=== PATIENT | male | born 1975 | race Caucasian/White ===

== ENCOUNTER 2018-03-01 19:18 | Observation (INO) | payer OTHER, SELFPAY ==
[2018-03-01] VITALS (10 sets, daily range): BP systolic 109–171; BP diastolic 76–125; PULSE 83–117; RESP 19–28; TEMP 37; O2SAT 96–100; BMI 26.4
--- NOTE | 2018-03-01 19:28 | DI.RAD.S_ITS ---
PROCEDURE: XR CHEST 1V INDICATIONS: chest pain TECHNIQUE: One view of the chest was acquired. COMPARISON: None. FINDINGS: Surgical changes and devices: None. Lungs and pleura: No pleural effusions or pneumothorax. Lungs are clear. Elevated left hemidiaphragm versus large hernia noted. Mediastinum: Mediastinal contours appear normal. Heart size is normal. Bones and chest wall: No suspicious bony lesions. Overlying soft tissues appear unremarkable. IMPRESSION: Elevated left hemidiaphragm versus large hernia. Dictated by: Donna Keys MD, PhD on 03/01/2018 at 20:11 Approved by: Donna Keys MD, PhD on 03/01/2018 at 20:12
[2018-03-01] MEDS: ASPIRIN 81 MG TAB 324 MG PO (19:34)
[2018-03-01] MEDS: NITROGLYCERIN 0.4 MG SL TAB SL ×3 (19:34→19:49)
[2018-03-01 19:36] LABS: Add Manual Diff / Slide Review NO; Basophils Percent Auto 0.7 % (0-2); Hematocrit 49.6 % (41-53); Hemoglobin 16.8 g/dL (13.5-17.5); Mean Corpuscular HGB Conc 33.9 % (30-36); Mean Corpuscular Hemoglobin 32.2 PG (26-34); Mean Corpuscular Volume 95.1 fL (80-100); Monocytes Percent Auto 6.5 % (3-14); Neutrophils Absolute Auto 7600 /uL (3000-5900); Neutrophils Percent Auto 75.8 % (50-75); Platelet Count 350 X10^3/uL (150-400); Red Blood Cell Count 5.22 X10^6/uL (4.5-5.9); Red Cell Distribution Width 12.2 % (11.6-14.8)
[2018-03-01 19:47] LABS: Alanine Aminotransferase 33 IU/L (21-72); Albumin Globulin Ratio 1.6 (1.0-2.8); Alkaline Phosphatase 110 U/L (38-126); Aspartate Aminotransferase 27 IU/L (17-59); Bilirubin Total 0.6 mg/dL (0.2-1.3); Blood Urea Nitrogen 17 mg/dL (9-20); Calcium 9.8 mg/dL (8.4-10.2); Carbon Dioxide 25 mmol/L (22-32); Chloride 102 mmol/L (98-107); Estimated Glomerular Filt Rate > 60.0 mL/min (>60); Globulin 3.1 g/dL (1.7-4.1); Glucose 111 mg/dL (70-100); HEMOLYSIS 29 (0-50); Lipase 16 U/L (23-300); Potassium 4.1 mmol/L (3.4-5.1); Sodium 139 mmol/L (137-145); Total Protein 8.1 g/dL (6.3-8.2)
[2018-03-01] MEDS: fentaNYL 100 MCG/2 ML INJ IV (19:47)
[2018-03-01 19:48] LABS: D Dimer < 200 ng/mL (<230)
[2018-03-01 19:59] LABS: Troponin I < 0.012 ng/mL (0.01-0.034)
--- NOTE | 2018-03-01 20:12 | DI.CT.S_ITS ---
PROCEDURE: CT ANGIO CHEST INDICATIONS: dissection? chest pain w/ tachycardia and non-specific ECG TECHNIQUE: Precontrast 5 mm thick sections acquired from the lung apices through the diaphragms. After the administration of intravenous contrast, 2.5 mm thick sections again acquired from the lung apices through the diaphragms. 10 mm maximum intensity projection (MIP) oblique sagittal and coronal reformats were then acquired. For radiation dose reduction, the following was used: automated exposure control. COMPARISON: None. FINDINGS: Image quality: Excellent. AORTA: Intramural hematoma: Absent Maximum hematoma thickness: Not applicable. Focal contrast enhancement: Intramural blood pool (< 2 mm neck or imperceptible communication with aortic lumen): Absent. Ulcer-like projection (broad communication with aortic lumen > 3 mm): Absent. Dissection: Absent Marlon classification: Not applicable. Maximum aortic diameter: Report 6 cm. [If Cam[place] A dissection, > 5.0 cm has a poorer prognosis. If Marlon B dissection, > 4.0 cm has a poorer prognosis.] Periaortic hematoma: Absent. CHEST: Lungs and pleura: No acute airspace opacities. No pleural effusions or pneumothorax. Central and peripheral airways are patent and normal in caliber. Left hemidiaphragm is elevated. Mediastinum: Heart size is normal. No pericardial effusion. No mediastinal or hilar adenopathy by size criteria. Central pulmonary arteries are normal in size. Esophagus is normal in caliber. No hiatal hernias. Bones and chest wall: No axillary adenopathy by size criteria. Thyroid gland is within normal limits. No suspicious bony lesions. No vertebral body compression fractures. ABDOMEN: Solid organs: Liver is normal in size and enhancement where visualized. Gallbladder is within normal limits. Biliary system is non dilated. Pancreas enhances normally. Spleen is normal in size and enhancement. No adrenal nodules. Visualized kidneys are normal in size and enhancement, without hydronephrosis. Peritoneum and bowel: No free fluid or air. Visualized bowel loops are normal in caliber and wall thickness. Nodes and vessels: Visualized retroperitoneal or mesenteric lymph nodes are normal by size criteria. Bones: No suspicious bony lesions. No vertebral body compression fractures. Spine degenerative disease and facet arthropathy noted. IMPRESSION: 1. No aortic aneurysm or aortic dissection. 2. Elevated left hemidiaphragm of uncertain etiology. 3. No lung consolidation. Dictated by: Donna Keys MD, PhD on 03/01/2018 at 21:02 Approved by: Donna Keys MD, PhD on 03/01/2018 at 21:11
[2018-03-01] MEDS: LORazepam 2 MG/ML SYRINGE 1 MG IV (20:46)
[2018-03-01] MEDS: SODIUM CHLORIDE 0.9% 1,000 ML 1000 ML IV (20:46)
[2018-03-01 22:15] LABS: Troponin I < 0.012 ng/mL (0.01-0.034)
--- NOTE | 2018-03-02 | DI.NM.S_ITS ---
PROCEDURE: NM PAOLA PERF SPECT REST & STR Rest and exercise myocardial perfusion SPECT with gated imaging and ejection fraction RADIOPHARMACEUTICAL: 27.3 mCi Tc-99m sestamibi IV at rest and 20.6 mCi Tc-99m sestamibi IV at peak exercise. A two day-protocol was performed. INDICATIONS: chest pain TECHNIQUE: Radiopharmaceutical was injected at peak stress test, and also at rest. SPECT images were obtained. SPECT myocardial perfusion images were displayed in short axis, horizontal long axis, and vertical long axis views. Gated images were reviewed using Adayana software. COMPARISON: None. CARDIAC STRESS: A standard Claus treadmill exercise tolerance test was performed by the patient under the supervision of an attending staff. The patient exercised for 9 minutes and 32 seconds reaching 10.1 METs; functional aerobic impairment (NAPOLEON) is +15%. Hemodynamic data: There is normal blood pressure and heart rate response to exercise stress. Patient achieved 89% of maximum predicted heart rate at peak exercise. Symptoms: Patient had non-diagnostic 7/10 chest pain at rest that became 8/10 during exercise. EKG: No diagnostic EKG changes of ischemia; no ectopy. FINDINGS: Raw data: There is good myocardial labeling by radiotracer. No significant motion artifacts. Left ventricle function: Gated images demonstrate normal left ventricle wall thickening. No segmental wall motion abnormality. No transient ischemic dilation. The left ventricle resting end-diastolic volume is 112 mL. Left ventricle stress ejection fraction is 69%; normal values are above 45%. Myocardial perfusion: There is a small mid to distal anterior wall mild to moderate perfusion defect at rest that mostly resolved with prone imaging, suggesting artifact than true ischemia or infarction. IMPRESSION: Low risk, likely normal treadmill nuclear stress test. 1) No perfusion evidence of ischemia or infarction. There is a small mid to distal anterior wall mild to moderate perfusion defect at rest that mostly resolved with prone imaging, suggesting artifact than true ischemia or infarction. 2) Normal left ventricular size, wall motion, and systolic function (post stress EF 69%). 3) No ECG evidence of ischemia or infarction. Non-diagnostic chest pain during the study. Patient had non-diagnostic 7/10 chest pain at rest that became 8/10 during exercise. 4) Mildly reduced exercise tolerance (10.1 METs, NAPOLEON +15%). Target heart rate achieved. Appropriate blood pressure response to exercise. 5) No prior nuclear stress test available for comparison. Dictated by: Tricia Licona MD on 03/03/2018 at 13:18 Approved by: Tricia Licona MD on 03/03/2018 at 13:25
--- NOTE | 2018-03-02 00:22 | ED_ITS ---
HPI - Chest Pain General Chief Complaint: Chest Pain Stated Complaint: HEART PROBLEMS Time Seen by Provider: 03/01/18 19:28 History of Present Illness HPI narrative: HPI 42-year-old male presents for evaluation of one hour crushing substernal chest pain that is radiating to his left arm and is without clear provoking or relieving factors. Patient reports he has a history of arrhythmia with one episode that occurred 10 years ago with similar symptoms. Patient has taken losartan since. Patient is unable to further characterize his medical history, notes his mother had a history of congenital heart disease with to enlarge valves and her heart exploded in her mid 50s leading to her . Patient denies recent immobilization, leg trauma, estrogen use, surgery in the last four weeks, hemoptysis, or malignancy in the last 6 months. M/S/F/SocHx notable for: please see HPI; remainder reviewed with patient and in chart. ROS: Negative constitutional, eye, cardiovascular, pulmonary, GI, , MSK, skin , neurologic, psychiatric, endocrine unless noted in the HPI. Exam Gen: pleasant, uncomfortable appearing, mildly diaphoretic. HEENT: NC, AT, PEERL, EOMI. Resp: Clear to auscultation bilaterally, normal work of breathing. Card: RRR with no M/R/G, no crackles in lung bases, no pedal edema, no JVD appreciated. GI: NT/ND MSK: No chest wall TTP. No visible deformities, strength and tone WNL. Skin: Normal color with no visible lesions. Neuro: AO x 3, no facial asymmetry, vision and hearing WNL. Psych: mildly anxious, mood and affect otherwise appropriate. Labs / Imaging (pertinent): WBC 10.0, Hb 16.8, Na 139, K 4.1, lipase 60. Troponin (7:30 PM) <0.012, troponin (9:30 PM) <0.012 d-dimer < 200 EKG: SR at 99 bpm, nonspecific ST segment depressions, 1.5 mm J-point elevation in leads V1, nonspecific ST changes in the remaining leads. EKG, right sided: SR 117 bpm, right-sided leads without ST segment elevations or depressions, remainder of ECG unchanged. EKG (repeat): SR 84 bpm, resolution of nonspecific ECG changes, mild decrease in lead V1 J-point and slight change in morphology, no ST segment depressions or elevations. CXR: No acute cardiopulmonary disease process. Elevated left hemidiaphragm versus large hernia. CTA Chest: 1. No aortic aneurysm or aortic dissection. 2. Elevated left hemidiaphragm of uncertain etiology. 3. No lung consolidation. MDM Previous chart, nursing note, and vitals reviewed. A: 42-year-old male presents for evaluation of one hour crushing substernal chest pain that is radiating to his left arm and is without clear provoking or relieving factors. DDx and Evaluation: * ACS - doubt ACS given a non-ischemic EKG and negative serial troponins. * UA - concern exists for unstable angina given the crushing substernal chest pain rating to an arm, nonspecific ECG changes, and resolution of ECG changes as well as symptoms with aspirin, rest, nitroglycerin. HEART score 5 (Hx - 1, EKG - 2, age - 1, risk factors - 1, troponin - 0; 30 day MACE: 12 to 16.6%). * Pericarditis - consider pericarditis unlikely given the lack of IN segment depressions as well as the absence of diffuse ST-segment elevations, lack of reduction of pain when supine, and lack of a friction rub. * Myocarditis - unlikely given the negative troponin and an EKG without characteristic IN-segment or ST-segment changes. * Dissection - negative CTA. * PE - Wells' (Signs & Sx of DVT - 0, PE is #1 or equally likelihood - 0, HR > 100 - 1.5, immobilization of >=3 days or surgery in last 28 days - 0, prior DVT or PE - 0, hemoptysis - 0, malignancy w/ tx in last 6 mo or palliative - 0) 1.5 ; as such the patient's negative d-dimer is appropriate for PE rule out/risk stratification. * Mediastinal Air - no evidence by imaging. * Pneumothorax - no evidence by imaging. * MSK - doubt given lack of reproducibility on exam. * Endocarditis - no identifiable risk factors, patient afebrile, no new murmurs appreciated on exam; doubt. * GI (Esophageal rupture, GERD) - esophageal rupture effectively excluded given the lack of mediastinal widening, non-toxic appearance, and lack of identifiable risk factors. While not definitively excluded, further evaluation of GERD is deferred to an outpatient setting. ED Course: Patient given ASA and prn SL nitroglycerin. Fentanyl required for additional pain control. Patient with mild change in symptoms with these intervention, Ativan given for further symptomatic treatment. Disposition: admitted for stress test in cardiac monitoring Impression: Chest Pain. Related Data Home Medications Medication Instructions Recorded Confirmed losartan 25 mg PO DAILY 03/01/18 03/01/18 Allergies Allergy/AdvReac Type Severity Reaction Status Date / Time benzonatate Allergy Verified 03/01/18 19:34 [From Ryan Morrow] Exam Initial Vital Signs Initial Vital Signs: Vital Signs Temperature 98.6 F 03/01/18 19:28 Pulse Rate 107 H 03/01/18 19:28 Respiratory Rate 20 03/01/18 19:28 Blood Pressure 171/125 H 03/01/18 19:28 Pulse Oximetry 100 03/01/18 19:28 Course Orders Ordered: ED Orders 03/01/18 19:28 XR chest 1V Stat EKG-12 Lead Stat 03/01/18 19:30 Complete Blood Count AUTO DIFF Stat Comprehensive Metabolic Panel Stat D Dimer Stat Lipase Stat Troponin I Stat 03/01/18 19:41 EKG-12 Lead Stat 03/01/18 20:12 CT chest wo/w con Stat 03/01/18 21:30 Troponin I Stat 03/02/18 00:12 Consult to Physician Routine Hydromorphone HCl (Dilaudid) 0.5 mg IV Q4HR PRN PRN Reason: Pain, Mild (1-3) Discontinued Medications Aspirin (Aspirin Chew) 324 mg PO NOW ONE Stop: 03/01/18 19:29 Last Admin: 03/01/18 19:34 Dose: 324 mg Fentanyl (Sublimaze) 100 mcg IV NOW ONE Stop: 03/01/18 19:43 Last Admin: 03/01/18 19:47 Dose: 100 mcg Sodium Chloride (Normal Saline 0.9%) 1,000 mls @ 1,000 mls/hr IV BOLUS ONE Stop: 03/01/18 21:42 Last Infusion: 03/01/18 21:59 Dose: 0 mls/hr Admin: 03/01/18 20:46 Dose: 1,000 mls/hr Lorazepam (Ativan) 1 mg IV NOW ONE Stop: 03/01/18 20:44 Last Admin: 03/01/18 20:46 Dose: 1 mg Nitroglycerin (Nitrostat) 0.4 mg SL [id number] PRN PRN Reason: Chest Pain Last Admin: 03/01/18 19:49 Dose: 0.4 mg Admin: 03/01/18 19:44 Dose: 0.4 mg Admin: 03/01/18 19:34 Dose: 0.4 mg Vital Signs - 8 hr 03/01/18 19:28 03/01/18 19:36 03/01/18 19:41 Temperature 98.6 F Pulse Rate 107 H 107 H 106 H Respiratory Rate 20 25 H Blood Pressure 171/125 H Blood Pressure [Right Arm] 163/125 H 163/125 H Pulse Oximetry 100 96 03/01/18 19:49 03/01/18 20:47 03/01/18 21:01 Temperature Pulse Rate 117 H 90 96 H Respiratory Rate 28 H 20 Blood Pressure Blood Pressure [Right Arm] 137/93 H 117/92 H 109/76 Pulse Oximetry 97 97 03/01/18 21:31 03/01/18 22:01 03/01/18 22:33 Temperature Pulse Rate 91 H 85 83 Respiratory Rate 23 19 21 Blood Pressure Blood Pressure [Right Arm] 125/90 H 114/85 H 114/86 H Pulse Oximetry 96 96 97 03/01/18 23:13 Temperature Pulse Rate 85 Respiratory Rate 19 Blood Pressure Blood Pressure [Right Arm] 159/89 H Pulse Oximetry 97 MDM - Chest Pain Lab Data Result diagrams: 03/01/18 19:30 03/01/18 19:30 Lab Results 03/01/18 03/01/18 03/01/18 Range/Units 19:30 19:30 19:30 WBC 10.0 (4.5-11.0) X10^3/uL RBC 5.22 (4.5-5.9) X10^6/uL Hgb 16.8 (13.5-17.5) g/dL Hct 49.6 (41-53) % MCV 95.1 (80-100) fL MCH 32.2 (26-34) PG MCHC 33.9 (30-36) % RDW 12.2 (11.6-14.8) % Plt Count 350 (150-400) X10^3/uL Neut % (Auto) 75.8 H (50-75) % Lymph % (Auto) 16.0 L (25-40) % [place] % (Auto) 6.5 (3-14) % Eos % (Auto) 1.0 L (2-4) % Baso % (Auto) 0.7 (0-2) % Neut # (Auto) 7600 H (7011-4823) /uL D-Dimer < 200 (<230) ng/mL Sodium 139 (137-145) mmol/L Potassium 4.1 (3.4-5.1) mmol/L Chloride 102 (98-107) mmol/L Carbon Dioxide 25 (22-32) mmol/L BUN 17 (9-20) mg/dL Creatinine 1.00 (0.66-1.25) mg/dL Estimated GFR > 60.0 (>60) mL/min BUN/Creatinine Ratio 17.0 (6-22) Glucose 111 H (70-100) mg/dL Calcium 9.8 (8.4-10.2) mg/dL Total Bilirubin 0.6 (0.2-1.3) mg/dL AST 27 (17-59) IU/L ALT 33 (21-72) IU/L Alkaline Phosphatase 110 (38-126) U/L Troponin I < 0.012 (0.01-0.034) ng/mL Total Protein 8.1 (6.3-8.2) g/dL Albumin 5.0 (3.5-5.0) g/dL Globulin 3.1 (1.7-4.1) g/dL Albumin/Globulin Ratio 1.6 (1.0-2.8) Lipase 16 L (23-300) U/L 03/01/18 Range/Units 21:30 WBC (4.5-11.0) X10^3/uL RBC (4.5-5.9) X10^6/uL Hgb (13.5-17.5) g/dL Hct (41-53) % MCV (80-100) fL MCH (26-34) PG MCHC (30-36) % RDW (11.6-14.8) % Plt Count (150-400) X10^3/uL Neut % (Auto) (50-75) % Lymph % (Auto) (25-40) % [place] % (Auto) (3-14) % Eos % (Auto) (2-4) % Baso % (Auto) (0-2) % Neut # (Auto) (7111-6574) /uL D-Dimer (<230) ng/mL Sodium (137-145) mmol/L Potassium (3.4-5.1) mmol/L Chloride (98-107) mmol/L Carbon Dioxide (22-32) mmol/L BUN (9-20) mg/dL Creatinine (0.66-1.25) mg/dL Estimated GFR (>60) mL/min BUN/Creatinine Ratio (6-22) Glucose (70-100) mg/dL Calcium (8.4-10.2) mg/dL Total Bilirubin (0.2-1.3) mg/dL AST (17-59) IU/L ALT (21-72) IU/L Alkaline Phosphatase (38-126) U/L Troponin I < 0.012 (0.01-0.034) ng/mL Total Protein (6.3-8.2) g/dL Albumin (3.5-5.0) g/dL Globulin (1.7-4.1) g/dL Albumin/Globulin Ratio (1.0-2.8) Lipase (23-300) U/L Discharge Plan Departure Patient Disposition: Admitted as Observation Clinical Impression: Chest pain
[2018-03-02 01:36] VITALS: BMI 26.4
--- NOTE | 2018-03-02 02:12 | PC.ADMIT ---
[address] Admission Note: The patient,VAZQUEZ PATHAK,42 y/o, was given written information regarding hospital policies, unit procedures and contact persons. Patient's smoking status: . Vital Signs - 8 hr 03/01/18 19:28 03/01/18 19:36 03/01/18 19:41 Temperature 98.6 F Pulse Rate 107 H 107 H 106 H Respiratory Rate 20 25 H Blood Pressure 171/125 H Blood Pressure [Right Arm] 163/125 H 163/125 H Pulse Oximetry 100 96 03/01/18 19:49 03/01/18 20:47 03/01/18 21:01 Temperature Pulse Rate 117 H 90 96 H Respiratory Rate 28 H 20 Blood Pressure Blood Pressure [Right Arm] 137/93 H 117/92 H 109/76 Pulse Oximetry 97 97 03/01/18 21:31 03/01/18 22:01 03/01/18 22:33 Temperature Pulse Rate 91 H 85 83 Respiratory Rate 23 19 21 Blood Pressure Blood Pressure [Right Arm] 125/90 H 114/85 H 114/86 H Pulse Oximetry 96 96 97 03/01/18 23:13 Temperature Pulse Rate 85 Respiratory Rate 19 Blood Pressure Blood Pressure [Right Arm] 159/89 H Pulse Oximetry 97
--- NOTE | 2018-03-02 02:13 | PC.NURSE ---
Alert/oriented. Arrived via stretcher, ambulated to bed. patient in no acute distress. Tele in place. Patient reports pain in chest/arm area 03/10 which it has been since getting pain meds in the ED. Patient appears relaxed and comfortable. Patient instructed home energy consultant light use. Nurse Garcia in ED reports patient NPO for stress test in AM. Patient reports passing out prior to coming to the ED and fell. Patient is a moderate risk for falls. Patient instructed to use call light prior to getting OOB and states understanding. Bed alarm placed and call light within reach.
--- NOTE | 2018-03-02 02:42 | PC.NURSE ---
Patient resting quietly with eyes closed and is snoring RR even and unlabored.
[2018-03-02 04:50] VITALS: BP 136/97; PULSE 82; RESP 13; TEMP 36.8; O2SAT 96
[2018-03-02] MEDS: HYDROMORPHONE 0.5 MG INJ IV ×2 (07:52→13:01)
[2018-03-02 08:06] VITALS: BP 145/89; PULSE 87; RESP 18; TEMP 36.6; O2SAT 97
--- NOTE | 2018-03-02 08:24 | PC.NURSE ---
Addendum entered by Theresa Zhao R.N. 03/02/18 13:09: PAIN - Dr. Johnson called to order a 30mg x1 dose toradol, when pt ret from scan, he states his pain had incr to about an 8 during the procedure, rates at 6 now, given the toradol, new order rec'd for gen diet, pt is alert, talking to family, no nausea or sob present, added 0.5mg iv dilaudid for continued discomfort, in for eval. Original Note: Addendum entered by Theresa Zhao R.N. 03/02/18 10:52: NUCL STRESS TEST - pt taken via wc for stress test, icu notifed for tele. Original Note: Addendum entered by Theresa Zhao R.N. 03/02/18 09:10: PAIN - earlier dilaudid did provide some relief, resting quietly bed, ekg completed. Original Note: AM NOTE - awake, checking cell phone, states slept briefly since arrival to floor, continues to have chest discomfort w/pain down r arm 6 on scale 0/10, describes as a dull, heavy weight, discomfort worse with movement and deep breathes,skin color pink, pain medications in er provided some brief relief, ra 96%, hr 80, +bt, denies nausea, npo status verified for anticipated nucl stress test this am, standby assist w/some initial slight dizziness, ambul into br and voided, ret to bed, advised to use call light for any oob assistance,given 0.5mg iv dilaudid for discomfort.
[2018-03-02 09:04] LABS: Cholesterol 191 mg/dL (140-199); HDL Cholesterol 38 mg/dL (40-60); LDL Cholesterol Calculated 128 mg/dL (<100); Triglycerides 123 mg/dL (35-150)
[2018-03-02 09:07] LABS: Troponin I < 0.012 ng/mL (0.01-0.034)
--- NOTE | 2018-03-02 09:49 | CM.URPRONOTE ---
CM UR Physician Consult Note Narrative: 42 yo male with atypical chest pain, normal troponin and non specific ST changes on ECG. Patient would be appropriate for observation status.
--- NOTE | 2018-03-02 10:00 | P.HP_ITS ---
History of Present Illness Date Patient Seen: 03/02/18 Time Patient Seen: 08:30 Chief complaint: HEART PROBLEMS Narrative: The patient states that after walking downstairs yesterday he experienced acute onset of severe, intense central chest pressure radiating into his right arm, worse with deep inspiration as a sharp discomfort behind his sternum. He states a family history of heart disease in his mother who in her 50s after history of congenital heart disease. The patient states a history of a arrhythmias, with chest discomfort over 10 years ago, but none since then. He is not sure of the details otherwise. He also has been told that a chest x-ray shows a chronically elevated left hemidiaphragm, noted when he was diagnosed with pneumonia a couple of years ago and treated as an outpatient. ER evaluation was unremarkable. He reports ongoing central chest discomfort. Serial cardiac enzymes have remained normal overnight. Patient History Family & Social History Family History: Reviewed 03/02/18 by Eladio Johnson MD Social History: household members spouse,children Safety & Behavioral: Feels Safe in Current Yes Environment Been Physically Hurt or No Threatened By a Person Suicidal Ideation Description None Suicide Plan Description No Plan Tobacco & Substance use: alcohol intake never Substance Use Type does not use Meds Home Medications Medication Instructions Recorded Confirmed Type losartan 25 mg PO DAILY 03/01/18 03/01/18 History Allergies Allergy/AdvReac Type Severity Reaction Status Date / Time benzonatate Allergy Verified 03/01/18 19:34 [From Ryan Morrow] Review of Systems Review of Systems All systems reviewed & are unremarkable except as noted in HPI and below Exam Vital Signs (past 8 hours): - 03/02/18 04:50 03/02/18 08:06 Temperature 98.2 F 98 F Pulse Rate 82 87 Respiratory Rate 13 18 Blood Pressure 136/97 H 145/89 H Pulse Oximetry 96 97 Oxygen Delivery Method Room Air Narrative Exam Narrative: General: Alert, pleasant healthy-appearing male in no apparent distress HEENT: Pupils equal round reactive, extraocular movements intact, mucous membranes pink and moist Neck: Supple Lungs: Clear to auscultation Cardiac: Regular rate and rhythm without appreciable murmur, rub or gallop Abdomen: Soft, nontender Extremities: Without edema Musculoskeletal: No joint tenderness, chest wall tenderness or deformity Neurologic: Alert, oriented, no focal motor sensory deficits evident Dermatologic: No rash or skin lesions Objective Labs Result Diagrams: 03/01/18 19:30 03/01/18 19:30 Labs: Laboratory Results - last 24 hr 03/01/18 03/01/18 03/01/18 19:30 19:30 19:30 WBC 10.0 RBC 5.22 Hgb 16.8 Hct 49.6 MCV 95.1 MCH 32.2 MCHC 33.9 RDW 12.2 Plt Count 350 Neut % (Auto) 75.8 H Lymph % (Auto) 16.0 L [place] % (Auto) 6.5 Eos % (Auto) 1.0 L Baso % (Auto) 0.7 Neut # (Auto) 7600 H D-Dimer < 200 Sodium 139 Potassium 4.1 Chloride 102 Carbon Dioxide 25 BUN 17 Creatinine 1.00 Estimated GFR > 60.0 BUN/Creatinine Ratio 17.0 Glucose 111 H Calcium 9.8 Total Bilirubin 0.6 AST 27 ALT 33 Alkaline Phosphatase 110 Troponin I < 0.012 Total Protein 8.1 Albumin 5.0 Globulin 3.1 Albumin/Globulin Ratio 1.6 Triglycerides Cholesterol LDL Cholesterol, Calc HDL Cholesterol Lipase 16 L 03/01/18 03/02/18 03/02/18 21:30 08:20 08:20 WBC RBC Hgb Hct MCV MCH MCHC RDW Plt Count Neut % (Auto) Lymph % (Auto) [place] % (Auto) Eos % (Auto) Baso % (Auto) Neut # (Auto) D-Dimer Sodium Potassium Chloride Carbon Dioxide BUN Creatinine Estimated GFR BUN/Creatinine Ratio Glucose Calcium Total Bilirubin AST ALT Alkaline Phosphatase Troponin I < 0.012 < 0.012 Total Protein Albumin Globulin Albumin/Globulin Ratio Triglycerides 123 Cholesterol 191 LDL Cholesterol, Calc 128 H HDL Cholesterol 38 L Lipase Assessment & Plan (1) Hypertension: Problem details: Continue routine medication. Current visit: Yes Status: Acute (2) Chest pain: Problem details: No evidence of myocardial infarction. Rule out underlying ischemic cardiomyopathy. Obtain nuclear medicine stress testing given significant family history and reported history of a arrhythmias and possible underlying cardiomyopathy. No evidence of pneumonia, aortic dissection or pulmonary embolism. If normal, patient will be discharged home with outpatient follow- up. Otherwise, Cardiology consultation will be obtained as indicated. Qualifiers: Chest pain type: Ischemic chest pain type: Current visit: Yes Status: Acute (3) Elevated hemidiaphragm: Problem details: Etiology of elevated left hemidiaphragm unclear, but chronic and not contributing to current presentation. Current visit: Yes Status: Acute Quality VTE Deep Vein Thrombosis/Pulmonary Embolism Present on Admission: No
[2018-03-02] MEDS: KETOROLAC 30 MG/ML VIAL IV ×2 (12:17→18:50)
[2018-03-02 13:00] VITALS: BP 141/103; PULSE 93; RESP 20; TEMP 36.8; O2SAT 96
[2018-03-02] MEDS: LOSARTAN 25 MG TABLET PO (14:10)
[2018-03-02 14:32] LABS: C-Reactive Protein Quant 0.7 mg/dL (<1.0)
[2018-03-02 14:34] LABS: Erythrocyte Sedimentation Rate 1 MM/HR (0-15)
[2018-03-02 14:42] LABS: Troponin I < 0.012 ng/mL (0.01-0.034)
[2018-03-02 15:03] LABS: Thyroid Stimulating Hormone 2.47 uIU/mL (0.47-4.68)
--- NOTE | 2018-03-02 15:21 | CM.DANOTE ---
DCP: assessment: case received, EMR reviewed and checked in this morning with pt. Introduced self and role. Pt is a 42 year old male who lives in [place] with his and children. Admitted to care of hospitalist team. Payer Yanique. P: home with outpt followup if all testing today proves this is doable, otherwise Dr. Johnson will be consulting cardiology. will follow prn.
[2018-03-02 16:15] VITALS: BP 166/80; PULSE 87; RESP 18; TEMP 36.8; O2SAT 97
[2018-03-02 18:37] VITALS: BP 154/117; PULSE 91; RESP 21; O2SAT 98
[2018-03-02] MEDS: HYDROMORPHONE 0.5 MG INJ 1 MG IV (18:50)
--- NOTE | 2018-03-02 19:42 | PC.NURSE ---
Addendum entered by Tamara Clayton R.N. 03/02/18 22:50: Patient reports pain relief and appears much less anxious after having Lorazepam. Visiting with 2 friends in room, laughing at times. Original Note: Patient called nurse in room, reporting heart feels like it's racing, said his neck heart beat had a pause. He is flushed in the face, reports sweating, BP 154/117. Rates chest pain 5/10, also said it never goes lower than a 5. I medicated him with scheduled Toradol and prn Dilaudid. 5 minutes later BP 147/105. Reports some relief from chest pain. I notified Dr Johnson of events. New order for Lorazepam 0.5 mg given. I talked to patient about this medication he said he would be willing to try it.
[2018-03-02] MEDS: LORazepam 0.5 MG TABLET PO (19:48)
[2018-03-02 20:07] VITALS: BP 147/127; PULSE 82; RESP 20; TEMP 36.7; O2SAT 96
[2018-03-03] MEDS: KETOROLAC 30 MG/ML VIAL IV ×3 (00:04→13:15)
[2018-03-03 00:10] VITALS: BP 122/77; PULSE 76; RESP 18; TEMP 36.7; O2SAT 97
[2018-03-03 05:15] VITALS: BP 126/77; PULSE 82; RESP 18; TEMP 36.7; O2SAT 97
[2018-03-03 06:23] LABS: Troponin I < 0.012 ng/mL (0.01-0.034)
--- NOTE | 2018-03-03 06:54 | PC.NURSE ---
Shift note Pt complained of pressure chest pain at a 5 at start of shift. Pt did note improvement in pain level of 3 at end of shift.
[2018-03-03 08:41] VITALS: BP 140/109; PULSE 114; RESP 14; TEMP 36.6; O2SAT 95
[2018-03-03 08:42] VITALS: BP 140/109; BP 146/116; PULSE 114
[2018-03-03] MEDS: ASPIRIN EC 325 MG TABLET PO (08:42)
[2018-03-03] MEDS: LOSARTAN 25 MG TABLET PO ×2 (08:42→13:15)
[2018-03-03 11:12] VITALS: BP 139/102; PULSE 96; RESP 15; TEMP 36.7; O2SAT 95
[2018-03-03 11:26] VITALS: BP 159/101; PULSE 99; RESP 18
--- NOTE | 2018-03-03 11:29 | PC.NURSE ---
Addendum entered by Dionne Pace R.N. 03/03/18 12:03: Patient returned from stress test. Sitting up in bed. Original Note: Addendum entered by Dionne Pace R.N. 03/03/18 11:30: pt c/o 4/10 pain in center of chest; states it is a heavy pain that sometimes radiates to his right arm. States he doesn't feel anxious and is aware that he has Ativan ordered. Original Note: Patient being transported off unit to stress test. BP currently 159/101, HR 99. Spoke to Alex regarding BP. Alex stated that he will wait for the stress test results before altering orders.
--- NOTE | 2018-03-03 13:17 | PM.DS.1 ---
History of Present Illness Date Patient Seen: 03/03/18 Time Patient Seen: 13:00 Chief complaint: HEART PROBLEMS Narrative: The patient states that after walking downstairs yesterday he experienced acute onset of severe, intense central chest pressure radiating into his right arm, worse with deep inspiration as a sharp discomfort behind his sternum. He states a family history of heart disease in his mother who in her 50s after history of congenital heart disease. The patient states a history of a arrhythmias, with chest discomfort over 10 years ago, but none since then. He is not sure of the details otherwise. He also has been told that a chest x-ray shows a chronically elevated left hemidiaphragm, noted when he was diagnosed with pneumonia a couple of years ago and treated as an outpatient. ER evaluation was unremarkable. He reports ongoing central chest discomfort. Serial cardiac enzymes have remained normal overnight. Discharge Providers Date of admission: 03/02/18 00:58 Consults: 03/02/18 00:12 Consult to Physician Routine Comment: Consulting Provider: Eladio Johnson V Reason for consultation: chest pain Has provider been notified: Yes Discharge provider: Eladio Johnson MD Summary Discharge Diagnosis: 1. Chest pain, likely due to viral pleural pericarditis 2. Hypertension, labile control 3. Elevated left hemidiaphragm, chronic Procedures: 1. Chest xray: Elevated left hemidiaphragm versus large hernia. 2. Chest CT angiogram: No aortic aneurysm or aortic dissection. Elevated left hemidiaphragm of uncertain etiology. No lung consolidation. 3. Nuclear medicine stress test: See report in chart, per Dr. Licona shows no reversible ischemia, normal study (with artifact presumably from elevated left hemidiaphgragm) Hospital Course: Patient was admitted and monitored on telemetry with serial cardiac enzymes obtained, ruling out for myocardial infarction. CT angiogram on admission showed no evidence of pericardial effusion, pneumonia or aortic dissection. D-dimer was negative and pulmonary embolism felt to be very unlikely. The patient was treated with IV Toradol with improvement in symptoms. Blood pressure was elevated up to 159/127 and his usual losartan was increased from 25 mg to 50 mg daily, but this was not felt to be related to his presenting chest pain, and a component of anxiety may have contributed. He was feeling significantly better at the time of discharge. No other issues arose. He will follow up with his primary care provider regarding ongoing blood pressure control. He is advised he may use ibuprofen as directed for 1-2 weeks but to minimize use. Status at Discharge Functional status at discharge: independent ambulation Overall status at discharge: patient is progressing back to baseline Exam Vital Signs (past 8 hours): - 03/03/18 08:41 03/03/18 08:42 03/03/18 11:12 Temperature 98 F 98.1 F Pulse Rate 114 H 114 H 96 H Respiratory Rate 14 15 Blood Pressure 140/109 H 140/109 H 139/102 H Pulse Oximetry 95 95 03/03/18 11:26 Temperature Pulse Rate 99 H Respiratory Rate 18 Blood Pressure 159/101 H Pulse Oximetry Oxygen Delivery Method Room Air Oxygen Flow Rate 0 Narrative Exam Narrative: General: Alert, pleasant healthy-appearing male in no apparent distress HEENT: Pupils equal round reactive, extraocular movements intact, mucous membranes pink and moist Neck: Supple Lungs: Clear to auscultation Cardiac: Regular rate and rhythm without appreciable murmur, rub or gallop Abdomen: Soft, nontender Extremities: Without edema Musculoskeletal: No joint tenderness, chest wall tenderness or deformity Neurologic: Alert, oriented, no focal motor sensory deficits evident Dermatologic: No rash or skin lesions Objective Labs Result Diagrams: 03/01/18 19:30 03/01/18 19:30 Labs: Laboratory Results - last 24 hr 03/02/18 03/02/18 03/02/18 14:05 14:05 14:05 ESR 1 Troponin I < 0.012 C-Reactive Protein 0.7 TSH 2.47 03/03/18 05:38 ESR Troponin I < 0.012 C-Reactive Protein TSH Discharge Plan Discharge Plan Patient Disposition: Home, Self-Care Discharge comment: take ibuprofen with food, minimize use and limit to 1-2 weeks; may use own losartan and buy OTC ibuprofen (no prescriptions sent); resume usual activity as tolerated Provider Discharge Instructions Diet: Regular and Low-fat Wound Care Report to your healthcare provider any signs of infection, such as:: chills, fever, night sweats and increased pain Discharge Data Attending Provider: Eladio Johnson V Admit Date/Time: 03/02/18 00:58 Quality VTE Deep Vein Thrombosis/Pulmonary Embolism Present on Admission: No
--- NOTE | 2018-03-03 13:25 | P.DS_ITS ---
History of Present Illness Date Patient Seen: 03/03/18 Time Patient Seen: 13:00 Chief complaint: HEART PROBLEMS Narrative: The patient states that after walking downstairs yesterday he experienced acute onset of severe, intense central chest pressure radiating into his right arm, worse with deep inspiration as a sharp discomfort behind his sternum. He states a family history of heart disease in his mother who in her 50s after history of congenital heart disease. The patient states a history of a arrhythmias, with chest discomfort over 10 years ago, but none since then. He is not sure of the details otherwise. He also has been told that a chest x-ray shows a chronically elevated left hemidiaphragm, noted when he was diagnosed with pneumonia a couple of years ago and treated as an outpatient. ER evaluation was unremarkable. He reports ongoing central chest discomfort. Serial cardiac enzymes have remained normal overnight. Discharge Providers Date of admission: 03/02/18 00:58 Consults: 03/02/18 00:12 Consult to Physician Routine Comment: Consulting Provider: Eladio Johnson V Reason for consultation: chest pain Has provider been notified: Yes Discharge provider: Eladio Johnson MD Summary Discharge Diagnosis: 1. Chest pain, likely due to viral pleural pericarditis 2. Hypertension, labile control 3. Elevated left hemidiaphragm, chronic Procedures: 1. Chest xray: * Elevated left hemidiaphragm versus large hernia. 2. Chest CT angiogram: * No aortic aneurysm or aortic dissection. * Elevated left hemidiaphragm of uncertain etiology. * No lung consolidation. 3. Nuclear medicine stress test: See report in chart, per Dr. Licona shows no reversible ischemia, normal study (with artifact presumably from elevated left hemidiaphgragm) Hospital Course: Patient was admitted and monitored on telemetry with serial cardiac enzymes obtained, ruling out for myocardial infarction. CT angiogram on admission showed no evidence of pericardial effusion, pneumonia or aortic dissection. D-dimer was negative and pulmonary embolism felt to be very unlikely. The patient was treated with IV Toradol with improvement in symptoms. Blood pressure was elevated up to 159/127 and his usual losartan was increased from 25 mg to 50 mg daily, but this was not felt to be related to his presenting chest pain, and a component of anxiety may have contributed. He was feeling significantly better at the time of discharge. No other issues arose. He will follow up with his primary care provider regarding ongoing blood pressure control. He is advised he may use ibuprofen as directed for 1-2 weeks but to minimize use. Status at Discharge Functional status at discharge: independent ambulation Overall status at discharge: patient is progressing back to baseline Exam Vital Signs (past 8 hours): - 03/03/18 08:41 03/03/18 08:42 03/03/18 11:12 Temperature 98 F 98.1 F Pulse Rate 114 H 114 H 96 H Respiratory Rate 14 15 Blood Pressure 140/109 H 140/109 H 139/102 H Pulse Oximetry 95 95 03/03/18 11:26 Temperature Pulse Rate 99 H Respiratory Rate 18 Blood Pressure 159/101 H Pulse Oximetry Oxygen Delivery Method Room Air Oxygen Flow Rate 0 Narrative Exam Narrative: General: Alert, pleasant healthy-appearing male in no apparent distress HEENT: Pupils equal round reactive, extraocular movements intact, mucous membranes pink and moist Neck: Supple Lungs: Clear to auscultation Cardiac: Regular rate and rhythm without appreciable murmur, rub or gallop Abdomen: Soft, nontender Extremities: Without edema Musculoskeletal: No joint tenderness, chest wall tenderness or deformity Neurologic: Alert, oriented, no focal motor sensory deficits evident Dermatologic: No rash or skin lesions Objective Labs Result Diagrams: 03/01/18 19:30 03/01/18 19:30 Labs: Laboratory Results - last 24 hr 03/02/18 03/02/18 03/02/18 14:05 14:05 14:05 ESR 1 Troponin I < 0.012 C-Reactive Protein 0.7 TSH 2.47 03/03/18 05:38 ESR Troponin I < 0.012 C-Reactive Protein TSH Discharge Plan Discharge Plan Patient Disposition: Home, Self-Care Discharge comment: take ibuprofen with food, minimize use and limit to 1-2 weeks ; may use own losartan and buy OTC ibuprofen (no prescriptions sent); resume usual activity as tolerated Provider Discharge Instructions Diet: Regular and Low-fat Wound Care Report to your healthcare provider any signs of infection, such as:: chills, fever, night sweats and increased pain Discharge Data Attending Provider: Eladio Johnson V Admit Date/Time: 03/02/18 00:58 Quality VTE Deep Vein Thrombosis/Pulmonary Embolism Present on Admission: No
--- NOTE | 2018-03-03 13:57 | PC.NURSE ---
Patient showered, dressed in personal clothes, all belongings apcked. IV removed, tele removed, DC instructions provided to patient, no questions remain. [employer] transported pt to personal vehicle via wheelchair.
== END 2018-03-03 13:58 | disposition home or self-care (01) ==
LOC: ED 03-02 00:15 → AC 03-02 00:58
PROVIDERS: Admitting Provider Internal Medicine; Emergency Provider Emergency Medicine; Visit Provider Internal Medicine
DX: R07.9 Chest pain, unspecified (principal); J98.6 Disorders of diaphragm; I10 Essential (primary) hypertension
CPT/HCPCS: 36415; 71045; 71270; 78452; 80053; 80061; 83690; 84443; 84484; 85025; 85379; 85651; 86140; 93005; 93016; 93017; 93018; 93041; 96361; 96374; 96375; 99284; 99285; 99291; 99292; G0378; A9502; J1170; J1885; J2060; J3010; Q9967